=== PATIENT | male | born 1940 | race Caucasian/White ===

== ENCOUNTER 2018-04-09 13:00 | Inpatient (IN) ==
--- NOTE | 2018-04-09 13:30 | Emergency Department Note ---
General Adult HPI - General Stated complaint: weak wont eat Time Seen by Provider: 04/09/18 13:10 Source: patient, family Mode of arrival: private vehicle Limitations: no limitations Nursing Notes Reviewed: Yes Vital Signs Reviewed: Yes - Related Data Home Medications Medication Instructions Recorded Confirmed Metoprolol [Lopressor] 100 mg PO BID 09/13/15 04/09/18 Cilostazol [Pletal] 100 mg PO BID 04/03/18 04/09/18 Ferrous Sulfate [Iron] 325 mg PO TID 04/03/18 04/09/18 Losartan Potassium [Cozaar] 100 mg PO DAILY 04/03/18 04/09/18 Tamsulosin [Flomax] 0.4 mg PO DAILY 04/03/18 04/09/18 Aspirin [Ecotrin] 1 tab PO DAILY 04/06/18 04/09/18 Atorvastatin [Lipitor] 40 mg PO HS 04/06/18 04/09/18 Previous Rx's Medication Instructions Recorded Sulfamethoxazole/Trimeth DS 1 each PO BID #14 tablet 04/06/18 [Bactrim DS] Allergies Allergy/AdvReac Type Severity Reaction Status Date / Time No Known Allergies Allergy Verified 04/06/18 11:38 Past Medical History - Past Medical History Medical history: Reports: aortic aneurysm, atrial fibrillation, cancer, CVA, hyperlipidemia, hypertension, renal disease, thyroid disease Surgical history: Reports: pacemaker/AICD, prostatectomy Psychiatric history: Reports: no psych history - Social History Smoking Status: Former smoker Smokeless Tobacco Status: No Alcohol use: Reports: none Drug use: Reports: none Course Vital Signs Temperature 97.8 F 04/09/18 13:10 Pulse Rate 84 04/09/18 13:10 Respiratory Rate 18 04/09/18 13:10 Blood Pressure 109/58 04/09/18 13:10 O2 Sat by Pulse Oximetry 98 04/09/18 13:10 Temperature 97.8 F 04/09/18 13:10 Pulse Rate 87 04/09/18 13:45 Respiratory Rate 18 04/09/18 13:10 Blood Pressure 96/65 04/09/18 13:45 O2 Sat by Pulse Oximetry 98 04/09/18 13:10 Oxygen Delivery Oxygen Delivery Room Air Medical Decision Making - Medical Records Medical records reviewed: Yes I reviewed the patient's medical records. - Lab Data Lab results reviewed: Yes I reviewed the patient's lab results. - Radiology Data Radiology results reviewed: Yes I reviewed the patient's radiology results. - EKG Data EKG #1 EKG attestation: Yes I reviewed and interpreted this EKG. Rate: normal Rhythm: A.Fib, PVC's [place]/QRS: left axis deviation When compared to previous EKG there are: no significant changes Interpretation: no acute changes, unchanged when compared to prior tracing (date ) (04/06/18)
[2018-04-09 14:01] LABS: Basophils % 0.6 %; Eosinophils # 0.2 K/mcL (0.0-0.6); Eosinophils % 2.4 %; Hematocrit 32.8 % (37.5-50.1); Hemoglobin 10.6 g/dL (12.9-16.9); Immature Granulocytes % 0.2 % (0-4); Lymphocytes # 1.2 K/mcL (0.6-4.6); Lymphocytes % 18.3 %; Mean Corpuscular HGB Conc 32.3 g/dL (31.6-35.5); Mean Corpuscular Hemoglobin 28.1 pg (28.0-33.3); Mean Platelet Volume 9.5 fL (9.4-12.4); Monocytes # 0.4 K/mcL (0.0-1.3); Monocytes % 6.6 %; Neutrophils # 4.6 K/mcL (1.6-8.9); Platelet Count 254 K/mcL (140-400); Red Blood Count 3.77 M/mcL (4.19-5.50); Red Cell Distribution Width 16.8 % (11.5-14.5); Segmented Neutrophils % 71.9 %
[2018-04-09 14:06] LABS: INR 1.1; Prothrombin Time 12.4 Seconds (9.4-12.1)
[2018-04-09 14:18] LABS: Alanine Aminotransferase 11 Units/L (7-52); Albumin 3.9 g/dL (3.5-5.7); Albumin/Globulin Ratio 1.1 (1.1-2.2); Alkaline Phosphatase 114 Units/L (34-104); Aspartate Amino Transferase 19 Units/L (13-39); BUN/Creatinine Ratio 10 (6-26); Bilirubin,Total 0.5 mg/dL (0.3-1.0); Blood Urea Nitrogen 31 mg/dL (8-23); Calcium 8.8 mg/dL (8.6-10.3); Carbon Dioxide 24 mEq/L (23-29); Chloride 102 mEq/L (98-107); Globulin 3.4 g/dL (2.4-3.5); Glucose 106 mg/dL (70-105); Osmolality,Calculated 285 (280-300); Potassium 4.4 mEq/L (3.5-5.1); Sodium 134 mEq/L (136-145); Total Protein 7.3 g/dL (6.4-8.9); Troponin I < 0.03 ng/mL (< 0.04); eGFR For Non-African Americans 19 (> 60)
--- NOTE | 2018-04-09 14:20 | Emergency Department Note ---
Disposition Clinical Impression: Chronic kidney disease, stage III (moderate), Weakness, CHEYANNE (acute kidney injury) Disposition: Admitted As Inpatient Condition: Fair Forms: ED Satisfaction Letter Weakness HPI - General Chief complaint: ED Neuro Symptoms/Deficit Stated complaint: weak wont eat Time Seen by Provider: 04/09/18 13:10 Source: patient, family Mode of arrival: private vehicle Limitations: physical limitation Nursing Notes Reviewed: Yes Vital Signs Reviewed: Yes - History of Present Illness HPI Narrative: Patient presents to the ED complaining of generalized weakness and having some episodes of lightheadedness and dizziness. Patient states yesterday he felt lightheaded and dizzy and had some blurry vision that lasted for a few hours. States he is also having troubling with his speech. His son states he is actually had 2 episodes like this, one each in the past few days where he reported seeing spots and had some mumbling speech. Patient denies any chest pain or shortness of breath. No specific weakness in arm or leg. No trouble finding his words or with his thoughts. Son states patient was just at [facility] a few days ago for concern of a possible stroke but states they were told he had only had a TIA. Patient was also back in this ED a few days ago again for weakness but was only found to have a UTI. Son states he had a normal CT scan at that time. They report compliance with all of his medications. He also has a history of A. fib. Son states he used to be on Coumadin for this but was taken off it in August because of some bleeding when he had a urinary tract infection. He states [facility] recommended that he should go back on it but this needed to be discussed with his PCP. He has an appointment with his PCP in 2 days but family convinced him to come into the ED today because of the episodes of lightheadedness and dizziness. Pain Scale: 0 - Related Data Home Medications Medication Instructions Recorded Confirmed Metoprolol [Lopressor] 100 mg PO BID 09/13/15 04/09/18 Cilostazol [Pletal] 100 mg PO BID 04/03/18 04/09/18 Ferrous Sulfate [Iron] 325 mg PO TID 04/03/18 04/09/18 Losartan Potassium [Cozaar] 100 mg PO DAILY 04/03/18 04/09/18 Tamsulosin [Flomax] 0.4 mg PO DAILY 04/03/18 04/09/18 Aspirin [Ecotrin] 1 tab PO DAILY 04/06/18 04/09/18 Atorvastatin [Lipitor] 40 mg PO HS 04/06/18 04/09/18 Previous Rx's Medication Instructions Recorded Sulfamethoxazole/Trimeth DS 1 each PO BID #14 tablet 04/06/18 [Bactrim DS] Allergies Allergy/AdvReac Type Severity Reaction Status Date / Time No Known Allergies Allergy Verified 04/06/18 11:38 Constitutional: Reports: weakness. Denies: fever, chills, weight change Eyes: Reports: as per HPI, vision change. Denies: eye pain, eye discharge ENT ED: Denies: ear pain, throat pain, dental pain, hearing loss, epistaxis, congestion, dysphagia Cardiovascular: Denies: chest pain, palpitations, dyspnea on exertion, edema, syncope Respiratory: Denies: cough, dyspnea, wheezes, hemoptysis, stridor Gastrointestinal: Denies: abdominal pain, nausea, vomiting, diarrhea, constipation, hematemesis, melena, hematochezia Genitourinary: Denies: urgency, dysuria, frequency, hematuria Musculoskeletal: Denies: back pain, neck pain, arthralgia, myalgia Integumentary: Denies: rash, abrasion, lesions Neurological: Reports: as per HPI, weakness, numbness (R leg, chronic). Denies : headache, paresthesias, confusion, abnormal gait, vertigo Psychiatric: Denies: anxiety, depression, suicidal thoughts, homicidal thoughts , auditory hallucinations, visual hallucinations Endocrine: Denies: fatigue Hematological/Lymphatic: Denies: easy bleeding, easy bruising Allergic/Immunologic: Denies: facial swelling, urticaria Past Medical History - Past Medical History Medical history: Reports: aortic aneurysm, atrial fibrillation, cancer, CVA, hyperlipidemia, hypertension, renal disease, thyroid disease Surgical history: Reports: pacemaker/AICD, prostatectomy Psychiatric history: Reports: no psych history - Social History Smoking Status: Former smoker Smokeless Tobacco Status: No Alcohol use: Reports: none Drug use: Reports: none Physical Exam - General Limitations: no limitations General appearance: alert, in no apparent distress - Head Head exam: atraumatic, normocephalic, normal inspection - Eye Eye exam: Present: normal appearance, PERRL, EOMI. Absent: nystagmus - ENT ENT exam: normal exam, normal oropharynx, mucous membranes moist - Neck Neck exam: Present: normal inspection, full ROM, trachea midline - Chest Chest inspection: Present: normal inspection, symmetric chest wall rise - Respiratory Respiratory exam: Present: normal lung sounds bilaterally - Cardiovascular Cardiovascular exam: Present: regular rate, normal rhythm, normal heart sounds - Abdominal Exam Abdominal exam: Present: soft, Non-Tender. Absent: tenderness, distention, guarding, rebound, rigidity - Extremities Exam Extremities exam: Present: normal inspection, full ROM. Absent: tenderness, pedal edema - Back Exam Back exam: Present: normal inspection, full ROM. Absent: tenderness - Neurological Exam Neurological exam: Present: alert, oriented X3, CN II-XII intact, reflexes normal. Absent: motor sensory deficit - Expanded Neurological Exam Motor strength - LUE: 5/5 Motor strength - RUE: 5/5 Motor strength - LLE: 5/5 Motor strength - RLE: 5/5 Upper motor neuron exam: fernandez neglect: Absent bilaterally, pronator drift: Absent bilaterally Sensory exam upper extremity: light touch: Normal Sensory exam lower extremity: light touch: Normal Coma Scale Eye Opening: Spontaneous Coma Scale Motor Response: Obeys Commands Coma Scale Verbal Response: Oriented Coma Scale Total: 15 - Psychiatric Psychiatric exam: Present: normal affect, normal mood - Skin Skin exam: Present: warm, dry, intact, normal color Course Course Narrative: Patient presents to the ED complaining of generalized weakness as well as some recurrent episodes of feeling lightheaded, dizzy and seeing spots as well as a subjective report of trouble with his speech. On arrival he is afebrile, nontoxic in appearance and hemodynamically stable. He ambulated into the ED. His speech is clear, there are no focal deficits in his an IHS stroke scale is currently 0. Review of records shows that he was seen here on 04/03 for sudden onset of weakness in his arm. Symptoms improved and he was not given TPA. He was sent to [facility] for further workup. Records there shows he was discharged on with a diagnosis of TIA and is on medications for risk factor modification. He he was seen here again in the ED on 04/06 for weakness. Laboratory studies were unchanged although urinalysis showed signs of possible UTI at that time. Head CT was normal. He was discharged home on antibiotics which he has been taking. Will repeat blood work, urinalysis, chest x-ray and head CT given persistent intermittent neurologic symptoms as well as generalized weakness that may be do to electrolyte abnormality, UTI or other underlying issue. - Reevaluation(s) Reevaluation #1: CBC and BMP are unchanged from a few days ago other than a significant increase in his creatinine which likely represents acute kidney injury. Patient is not yet the nail to provide a urine sample. Head CT and chest x-ray are unremarkable with no new findings. EKG showed A. fib with PVCs and no ischemic changes and is unchanged from April 06. Will start patient on gentle hydration. Discussed with patient and family my recommendation for admission for IV hydration and monitoring of his kidney function and they are in agreement. Family feels that he would also benefit from evaluation for possible physical therapy for his general decline. I spoke to Dr. Biggs from his PCPs office. Records were reviewed which did reveal some evidence of chronic kidney disease and a history of recurrent slow-growing mass in his kidney that was felt to be likely renal carcinoma that patient has been undergoing conservative management of with close follow-up with nephrology and urology on an outpatient basis. Dr. Biggs agreed to accept the patient here for IV hydration and repeat laboratory studies. Patient family updated on plan. Time: 14:47 Vital Signs Temperature 97.8 F 04/09/18 13:10 Pulse Rate 84 04/09/18 13:10 Respiratory Rate 18 04/09/18 13:10 Blood Pressure 109/58 04/09/18 13:10 O2 Sat by Pulse Oximetry 98 04/09/18 13:10 Temperature 97.8 F 04/09/18 13:10 Pulse Rate 87 04/09/18 13:45 Respiratory Rate 18 04/09/18 13:10 Blood Pressure 96/65 04/09/18 13:45 O2 Sat by Pulse Oximetry 98 04/09/18 13:10 Oxygen Delivery Oxygen Delivery Room Air Weakness - Differential Diagnosis Differential Diagnosis: Likely: dehydration, medication effect, stroke, metabolic - Medical Records Medical records reviewed: Yes I reviewed the patient's medical records. - Lab Data Lab results reviewed: Yes I reviewed the patient's lab results. Result diagrams: 04/09/18 13:52 04/09/18 13:52 Lab Results 04/09/18 04/09/18 Range/Units 13:52 13:52 WBC 6.3 (4.3-11.1) K/mcL RBC 3.77 L (4.19-5.50) M/mcL Hgb 10.6 L (12.9-16.9) g/dL Hct 32.8 L (37.5-50.1) % MCV 87.0 (83.0-100.0) fL MCH 28.1 (28.0-33.3) pg MCHC 32.3 (31.6-35.5) g/dL RDW 16.8 H (11.5-14.5) % Plt Count 254 (140-400) K/mcL MPV 9.5 (9.4-12.4) fL Immature Gran % 0.2 (0-4) % Seg Neutrophils % 71.9 % Lymphocytes % 18.3 % Monocytes % 6.6 % Eosinophils % 2.4 % Basophils % 0.6 % Neutrophils # 4.6 (1.6-8.9) K/mcL Lymphocytes # 1.2 (0.6-4.6) K/mcL Monocytes # 0.4 (0.0-1.3) K/mcL Eosinophils # 0.2 (0.0-0.6) K/mcL Basophils # 0.0 (0.0-0.2) K/mcL Sodium 134 L (136-145) mEq/L Potassium 4.4 (3.5-5.1) mEq/L Chloride 102 (98-107) mEq/L Carbon Dioxide 24 (23-29) mEq/L BUN 31 H (8-23) mg/dL Creatinine 3.11 H (0.70-1.30) mg/dL Est GFR ( Amer) 24 L (> 60) Est GFR (Non-Af Amer) 19 L (> 60) BUN/Creatinine Ratio 10 (6-26) Glucose 106 H (70-105) mg/dL Calculated Osmolality 285 (280-300) Calcium 8.8 (8.6-10.3) mg/dL Total Bilirubin 0.5 (0.3-1.0) mg/dL AST 19 (13-39) Units/L ALT 11 (7-52) Units/L Alkaline Phosphatase 114 H (34-104) Units/L Troponin I < 0.03 (< 0.04) ng/mL Serum Total Protein 7.3 (6.4-8.9) g/dL Albumin 3.9 (3.5-5.7) g/dL Globulin 3.4 (2.4-3.5) g/dL Albumin/Globulin Ratio 1.1 (1.1-2.2) - Radiology Data Radiology results reviewed: Yes I reviewed the patient's radiology results. ITS Impressions Chest X-Ray 04/09/18 13:30 IMPRESSION: No acute cardiopulmonary abnormality. D/ / Shayan Muir / Shayan Muir Interpreting Provider: Shayan Muir Head CT 04/09/18 13:31 IMPRESSION: No acute intracranial abnormality. Multiple chronic changes as detailed above. D/ / 04/09/2018 14:22:00 Axel Garza MD / berny Interpreting Provider: Axel Garza MD - EKG Data EKG attestation: Yes I reviewed and interpreted this EKG. Rate: normal Rhythm: A.Fib, PVC's Interpretation: no acute changes, unchanged when compared to prior tracing (date ) (04/06/18) NIH Stroke Scale - Level of Consciousness LOC: Alert - LOC Questions LOC Questions: Answers both correctly - LOC Commands LOC Commands: Performs both correctly - Best Gaze Best Gaze: Normal - Visual Visual: No visual loss - Facial Palsy Facial Palsy: Normal - Motor Arms Motor Arm-Left: No drift for 10 seconds Motor Arm-Right: No drift for 10 seconds - Motor Legs Motor Leg-Left: No drift for 5 seconds Motor Leg-Right: No drift for 5 seconds - Limb Ataxia Limb Ataxia: Normal, No Ataxia - Sensory Sensory: Normal - Best Language Best Language: No aphasia - Dysarthria Dysarthria: Normal - Extinction and Inattention Extinction and Inattention: Normal - NIHSS Total Score NIHSS Total Score: 0
[2018-04-09] MEDS ORDERED: 0.9 % Sodium Chloride 1,000 ML IVC SCH (14:30)
[2018-04-09] MEDS ORDERED: Naloxone 0.4 MG/ML INJ IVP PRN ×2 (14:50→16:12)
[2018-04-09] MEDS: 0.9 % Sodium Chloride 1,000 ML IVC SCH ×2 (17:37→23:40)
--- NOTE | 2018-04-09 23:17 | Internal Med History&Physical ---
Date of Encounter: 04/10/18 Time of Encounter: 23:17 Assessment and Plan (1) CHEYANNE (acute kidney injury) Current visit: Yes Status: Acute Patient is admitted to observation bed with history of acute kidney injury with creatinine now up to 3.1. He does have a history chronic kidney disease but not this degree. Likely this is prerenal as is not been eating and drinking well the past few days as he is "felt weak". Alternately, he might be feeling weak because of his chronic kidney disease. He indicates he will have IV fluids and repeat in the morning. He does have history chronic kidney disease and followed by Dr. Huerta. He also happens to have right renal mass likely recurrence of renal cell carcinoma after cryoablation. Currently they are not planning intervention. No gross hematuria currently. Previously had hematuria and anemia. (2) History of CVA (cerebrovascular accident) Current visit: Yes Status: Acute History of bilateral small CVAs with recent right upper extremity TIA and was transferred to [facility]. The recommended full anticoagulation but was discharged on aspirin 325 and atorvastatin in addition to his usual medications. That incision for full anticoagulation to PCP Roxana Mathew with appointment scheduled for 2 days from now. At the present time I do not feel that these having recurrence of CVA. He seemed to have slight right lower extremity foot decreased strength in plantar flexion and dorsiflexion compared to left side. Continues with atrial fibrillation. His echocardiogram apparently was unremarkable for septal defect or clot. He had total occlusion of the right IC with 40% occlusion of the left internal carotid. I will continue with the aspirin. He was taken off Coumadin because of the bleeding/hematuria previously. (3) Chronic kidney disease, stage III (moderate) Current visit: Yes Status: Chronic Chronic kidney disease and followed by Dr. Huerta. Today admitted with acute kidney injury with creatinine 3.1. (4) Weakness Current visit: Yes Status: Acute Continued generalized weakness, particularly of the lower extremities though. The patient on his medical status tomorrow we will evaluate with PT and OT. His CT scan shows small vessel disease. MRI done a few days ago at [facility] showed small multiple infarcts. He is a great fall risk and I hope therapy is able to see him and make him stronger. (5) Atrial fibrillation Current visit: Yes Status: Chronic Chronic atrial fibrillation which has controlled rate. Likely this is the source of his multiple small CVAs as documented on MRI scan. We will discuss further anticoagulation as well. Qualifiers: Atrial fibrillation type: chronic Qualified Code(s): I48.2 - Chronic atrial fibrillation (6) Renal mass, right Current visit: No Status: Acute Patient was treated for right renal cell carcinoma with cryoablation. However probably there is recurrence and has a large 5 cm right renal mass. The present time they are planning no intervention. (7) DVT prophylaxis Current visit: Yes Status: Acute We will plan on starting Lovenox for DVT prophylaxis as well as try to initiate early ambulation Internal Medicine - H&P: HPI Chief complaint: I was having some dizzy spells Admitted From: Emergency Dept Plans for Post Hospital Care: Home History of present illness: Mr. Issa is a 78 year old male with known history of recent TIA of right upper extremity at [facility], history of hypertension, PVD, chronic atrial fibrillation, renal carcinoma and chronic kidney disease was seen in the emergency room because of "dizzy spells". He states that his vision was "blurry" when he is watching TV. It would "come and go". He states "I have no strength, I am weak", and he complains mainly in his legs being weak bilaterally. He said he has "dizzy spells" but he does not have vertiginous type symptoms. It is hard for him to explain the symptoms. Denies acute vision problems but he states his right eye has "bad" for many years. He was at [facility] recently with a history of right arm weakness when he was mowing. Workup there included MRI scan which showed multiple small infarcts. 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 He has history of chronic atrial fibrillation. His echocardiogram was unremarkable for septal defect or clot. He was recently taken off Coumadin because of hematuria/ anemia. [facility] wants him back on full anticoagulation, he is currently taking aspirin 325 mg and atorvastatin was added. He had an appointment to see Roxana Mathew his PCP on 04/11/18 to discuss this further. Patient denies headache, new vision changes, new unilateral weakness. He states both his lower extremities feel weak, the right possibly more weak than the left. He thinks his right arm is back to normal following TIA. He has not had any falling episodes. At home he uses a walker or wheelchair or cane to get around since that episode. In the ER they felt he did not have any new focal deficit. His vitals were stable. However, he has acute kidney injury with creatinine of 3.1 which is far from his baseline. Patient admits he has not been eating or drinking very much for the past few days. He denies any gross hematuria. Past Med Surg Social Fam HX - Past Medical History Medical history: aortic aneurysm, atrial fibrillation, cancer (Renal cell carcinoma and recurrence), CVA, hyperlipidemia, hypertension, malignancy ( History of renal cell carcinoma and recurrence after cryotherapy), renal disease , thyroid disease Additional medical history: stroke in right eye Psychiatric history: no psych history - Past Surgical History Surgical History: prostatectomy Additional surgical history: cardioversion 2007, aaa repair, colonoscopy - Social History Smoking Status: Former smoker Smokeless Tobacco Status: No Alcohol use: none Drug use: none - Family History Father Cause of : History coronary artery disease Hx Family Cardiac Disorders: Yes Mother Living Status: Cause of : History of cholecystitis Internal Medicine - H&P: Meds Metoprolol [Lopressor] 100 mg PO BID 09/13/15 [History] Cilostazol [Pletal] 100 mg PO BID 04/03/18 [History] Ferrous Sulfate [Iron] 325 mg PO TID 04/03/18 [History] Losartan Potassium [Cozaar] 100 mg PO DAILY 04/03/18 [History] Tamsulosin [Flomax] 0.4 mg PO DAILY 04/03/18 [History] Aspirin [Ecotrin] 1 tab PO DAILY 04/06/18 [History] Atorvastatin [Lipitor] 40 mg PO HS 04/06/18 [History] Diltiazem HCl [Diltiazem 24Hr Cd] 360 mg PO DAILY 04/10/18 [History] 3 Allergy/AdvReac Type Severity Reaction Status Date / Time No Known Allergies Allergy Verified 04/06/18 11:38 - Constitutional Constitutional: fatigue, lethargy, no fever(s), no falls - EENT Additional comments: Chronically has poor vision from the right eye for many years Nose, mouth and throat: no neck mass, no sore throat - Cardiovascular Cardiovascular ROS IM: no chest pain, no claudication, no dyspnea, no edema, no irregular heart rhythm - Respiratory Respiratory: no dyspnea, no hemoptysis, no dyspnea on exertion, no chest congestion - Gastrointestinal Gastrointestinal: no constipation, no diarrhea, no hematemesis, no hematochezia , no melena - Genitourinary Genitourinary ROS male: no difficulty urinating - Musculoskeletal Musculoskeletal ROS IM: muscle weakness (Complaints of lower extremity weakness , the right may be worse than the left. No recent falls.) - Integumentary Integumentary IM: no rash - Neurological Neurological ROS: dizziness (Complaint of "dizziness" but he does not mean vertigo.), loss of vision (Chronically has decreased vision in the right eye.), weakness (Feels like his lower extremities are weak, right worse than left.), no confusion, no frequent falls, no memory loss, no vertigo - Psychiatric Psychiatric: no confusion, no depression - Constitutional Vitals: Temp Pulse Resp BP Pulse Ox 97.4 F L 86 16 119/47 93 04/09/18 19:52 04/09/18 22:33 04/09/18 15:38 04/09/18 22:33 04/09/18 19:52 General appearance: Present: cooperative, A&O X 3, no acute distress, answers questions appropriately - Head Head exam: Present: atraumatic, normal inspection, normocephalic - Eye Eye exam: Present: EOMI, PERRL. Absent: scleral icterus Pupils: Present: PERRL - ENT ENT exam: Present: mucous membranes moist, TM's normal bilaterally Additional comments: He is missing his upper teeth and no dentures present. Some lower teeth still present. - Neck Neck exam general surgery: Absent: lymphadenopathy, nuchal rigidity, thyromegaly Additional comments: I did not hear any bruits bilaterally, but he did not hold his breath well - Respiratory Respiratory exam: Present: CTAB. Absent: respiratory distress - Cardiovascular Cardiovascular exam: Present: distant heart sounds, irregular rhythm, +S1, +S2. Absent: systolic murmur - GI/Abdominal GI/Abdominal exam: Present: soft. Absent: hepatomegaly, tenderness - Extremities Exam Extremities exam: Present: warm. Absent: calf tenderness, mottling, pedal edema - Neurological Exam Neurological exam: Present: alert, CN II-XII intact, oriented X3. Absent: altered, facial droop Additional comments: Dorsiflexion and plantar flexion of the right foot and toes seemed slightly weaker than the left side. Quad strength tested in bed is equal and normal bilaterally. Upper extremity strength appeared to be intact bilaterally. I did not check his gait. - Skin Skin exam: Absent: rash Internal Med - H&P Results - Labs CBC & Chem 7: 04/09/18 13:52 04/10/18 05:45 Labs: Labs have been reviewed. Pertinent one includes creatinine 3.1. - Diagnostic Studies CT scan - head Additional comments: CT scan of the head in the ER showed multiple microvascular ischemic changes. Nothing localizing. - VTE Reasons for not Prescribing Prophylaxis: Medical contraindication
[2018-04-10 00:17] LABS: Bilirubin,Urine Negative (Negative); Blood,Urine Large (Negative); Clarity,Urine Clear (Clear); Color,Urine Yellow (Yellow); Glucose,Urine (UA) Normal (Normal); Ketones,Urine Negative (Negative); Leukocyte Esterase,Urine Negative (Negative); Nitrite,Urine Negative (Negative); Protein,Urine 100 mg/dL (Neg-Trace); Specific Gravity,Urine >= 1.030 (1.010-1.025); Urobilinogen,Urine Normal (Normal)
[2018-04-10 00:35] LABS: RBC,Urine TNTC per hpf (0-3); Squamous Epithelial Cell,Urine Few per lpf (None-Few); WBC,Urine 0-3 per hpf (0-3)
[2018-04-10 06:13] LABS: Calcium 8.3 mg/dL (8.6-10.3); Potassium 4.2 mEq/L (3.5-5.1)
[2018-04-10] MEDS: *HR* Enoxaparin 30 MG/0.3 ML SYRINGE SQ SCH (06:21)
[2018-04-10] MEDS: 0.9 % Sodium Chloride 1,000 ML IVC SCH ×2 (08:37→17:21)
[2018-04-10] MEDS: Diltiazem CD (24hr) 180 MG CAPSULE PO SCH (08:39)
[2018-04-10] MEDS: Aspirin Enteric Coated 325 MG Tablet PO SCH (08:39)
--- NOTE | 2018-04-10 12:38 | Internal Med Progress Note ---
Date of Encounter: 04/10/18 Time of Encounter: 12:19 - Assessment and plan (1) CHEYANNE (acute kidney injury) Current Visit: Yes Status: Acute Assessment and plan: Patient minutes to observation bed due to acute kidney injury. Creatinine is still elevated above his baseline chronic kidney disease. It is showing improvement with IV fluids and we will continue the same. We will contact his syrup blender if not resolving (2) History of CVA (cerebrovascular accident) Current Visit: Yes Status: Acute Assessment and plan: It appears that he has had a CVA with residual right hemiplegia not just a resolved TIA as per [facility] note. He deserves to be admitted to the hospital for ongoing PT and OT and other therapy evaluation. I will consult Dr. Tam, vocational rehabilitation administrator, for further evaluation and planning. I feel that he meets criteria for admission to hospital and I will make those orders. Hopefully he will qualify for full rehabilitation at the appropriate time. I appreciate input from PT and OT today. I feel that he should resume his Coumadin because of his atrial fibrillation and history of multiple CVA findings on his MRI scan. The Coumadin was held because of hematuria and anemia but I think the risks of recurring CVA is larger. I will discuss this with his PCP as well. (3) Chronic kidney disease, stage III (moderate) Current Visit: Yes Status: Chronic Assessment and plan: Acute kidney injury in addition to chronic kidney disease. Creatinine is improving. Continue the IV fluids. Nephrology consultation if not resolving (4) Weakness Current Visit: Yes Status: Acute Assessment and plan: As above with CVA (5) Atrial fibrillation Current Visit: Yes Status: Chronic Assessment and plan: Chronic atrial fibrillation and rate controlled. No angina or CHF. Consideration for restarting Coumadin because of residual CVA signs and multiple small infarcts on MRI scan likely embolic. Qualifiers: Atrial fibrillation type: chronic Qualified Code(s): I48.2 - Chronic atrial fibrillation (6) Renal mass, right Current Visit: No Status: Acute (7) DVT prophylaxis Current Visit: Yes Status: Acute - Subjective Interval history: Patient thought that he rested Saturday well through the night. He still complains "I am weak all over". He does not have much of an appetite. He states he has not eaten well since his episode this sent him to [facility]. He denies a cardiac type chest pain or palpitation, denies any dyspnea. Denies any GI or symptoms except he "has the runs", meaning these had some loose stools recently. No gross hematuria. I spoke with his son today who said that ever since he came home from [facility] from having had his "TIA" he has had to help with standing to pivot and turn and sit into a wheelchair, had to help him with toileting, and that the patient has not been able to walk independently. This is obviously far worse than what the patient implied to me when I met him. - Constitutional Vitals: Temp Pulse Resp BP Pulse Ox 97.6 F 80 16 120/69 93 04/10/18 11:54 04/10/18 11:54 04/10/18 11:54 04/10/18 11:54 04/10/18 11:54 General appearance: Present: cooperative, A&O X 3, no acute distress, answers questions appropriately - Respiratory Respiratory exam: Present: CTAB - Cardiovascular Cardiovascular exam: Present: irregular rhythm, RRR, +S1, +S2 - Extremities Exam Extremities exam: Absent: calf tenderness, pedal edema - Neurological Exam Additional comments: As tested in seated position, 4-5 in strength in his quads and dorsiflexion plantar flexion of the foot on the right side. I did not try to ambulate him today. He has seen PT and OT and I will review those reports. Internal Medicine: Result - Labs CBC & Chem 7: 04/09/18 13:52 04/10/18 05:45 Labs: BMP 04/10/18 05:45 Sodium 138 Potassium 4.2 Chloride 108 H Carbon Dioxide 23 BUN 29 H Creatinine 2.52 H Glucose 100 Calcium 8.3 L Urine 04/09/18 Range/Units 23:58 Urine Color Yellow (Yellow) Urine Clarity Clear (Clear) Urine pH 6.0 (5.0-8.0) pH Units Ur Specific [place] >= 1.030 H (1.010-1.025) Urine Protein 100 H (Neg-Trace) mg/dL Urine Glucose (UA) Normal (Normal) mg/dL His creatinine is a bit better down for 3.1 to 2.52. - ABG Interpretation ABG results: PT/INR, D-dimer PT 12.4 Seconds (9.4-12.1) H 04/09/18 13:52 - VTE Reasons for not Prescribing Prophylaxis: Medical contraindication Consult Discharge Plan - Plan Referrals: Roxana Mathew CNP [Primary Care Provider] -
[2018-04-10] MEDS ORDERED: *HR* Warfarin 5 MG TABLET PO ONE (19:31)
--- NOTE | 2018-04-10 20:10 | Physcial Medicine-Consult Note ---
Date of Encounter: 04/10/18 Time of Encounter: 20:06 Physical Medicine - AP (1) CVA (cerebral vascular accident) Status: Acute Assessment and plan: Left CVA Right sided incooordination. Improving right hemisensory deficit. Pt. is appropriate for rehab program to regain right hemibody controll and gait stability so he can be safe at home Code(s): I63.9 - Cerebral infarction, unspecified SNOMED Code(s): 621654705 Physical Medicine - HPI - Data of Consult Requesting Physician: Peter Biggs MD Primary Care Provider: Roxana Mathew CNP - Consult Narrative History of present illness: Mr. Issa is a 78 year old LH male Admitted for right sided weakness, abnormality or gait, RUE hemisensory disturbance. He was not eating or drinking at home. He admits to RUE numbness but states it is improving. He admits to being unsteady on his feet. He denies visual change, difficulty swallowing, or incontinence. CC: Peter Biggs MD Past Med Surg Social Fam HX - Past Medical History Attestation: Yes The following information was validated with the patient. Medical history: aortic aneurysm, atrial fibrillation, cancer (Renal cell carcinoma and recurrence), CVA, hyperlipidemia, hypertension, malignancy ( History of renal cell carcinoma and recurrence after cryotherapy), renal disease , thyroid disease Additional medical history: stroke in right eye Psychiatric history: no psych history - Past Surgical History Surgical History: prostatectomy Additional surgical history: cardioversion 2007, aaa repair, colonoscopy - Social History Smoking Status: Former smoker Smokeless Tobacco Status: No Alcohol use: none Drug use: none Occupational status: retired Current living situation: Home - Independent Activity Level: Very active Recent Out of Country Travel Within the Last 8 Weeks: No Exposure or Possible Exposure to Illness During Travel: No Additional social history: Lives in a 1 story house with 4 steps up from outside to enter. He has a son who is involved with his care. - Family History Father Cause of : History coronary artery disease Hx Family Cardiac Disorders: Yes Mother Living Status: Cause of : History of cholecystitis Medications and Allergies Metoprolol [Lopressor] 100 mg PO BID 09/13/15 [History] Cilostazol [Pletal] 100 mg PO BID 04/03/18 [History] Ferrous Sulfate [Iron] 325 mg PO TID 04/03/18 [History] Losartan Potassium [Cozaar] 100 mg PO DAILY 04/03/18 [History] Tamsulosin [Flomax] 0.4 mg PO DAILY 04/03/18 [History] Aspirin [Ecotrin] 1 tab PO DAILY 04/06/18 [History] Atorvastatin [Lipitor] 40 mg PO HS 04/06/18 [History] Diltiazem HCl [Diltiazem 24Hr Cd] 360 mg PO DAILY 04/10/18 [History] 3 Allergy/AdvReac Type Severity Reaction Status Date / Time No Known Allergies Allergy Verified 04/06/18 11:38 All systems: reviewed and no additional remarkable complaints except as stated Physical Medicine - Exam - Constitutional Vitals: Temp Pulse Resp BP Pulse Ox 98.3 F 89 16 105/72 96 04/10/18 19:38 04/10/18 19:38 04/10/18 19:38 04/10/18 19:38 04/10/18 19:38 General appearance: cooperative, no acute distress, obese - Head Head exam: Present: atraumatic, normocephalic - Eye Eye exam: Present: EOMI Additional comments: Visual landry intact to confrontation. - ENT ENT exam: Present: mucous membranes dry, normal oropharynx Additional comments: Tongue protrudes midline. - Neck Neck exam: Present: full ROM. Absent: tenderness - Respiratory Respiratory exam: Present: CTAB - Cardiovascular Cardiovascular exam: Present: irregular rhythm - GI/Abdominal GI/Abdominal exam: Present: normal bowel sounds, soft - Extremities Exam Extremities exam: Present: full ROM, normal capillary refill, normal inspection. Absent: joint swelling, pedal edema Additional comments: Strength 4+/5 all - Neurological Exam Neurological exam: Present: abnormal gait, alert, CN II-XII intact, oriented X3 , pronater drift. Absent: reflexes normal, facial droop Additional comments: RUE and RLE incoordination. - Psychiatric Psychiatric exam: Present: flat affect, normal mood - Skin Skin exam: Present: intact Physical Medicine - Results - Labs CBC & Chem 7: 04/09/18 13:52 04/10/18 05:45 Labs: BMP 04/10/18 05:45 Sodium 138 Potassium 4.2 Chloride 108 H Carbon Dioxide 23 BUN 29 H Creatinine 2.52 H Glucose 100 Calcium 8.3 L Urine 04/09/18 Range/Units 23:58 Urine Color Yellow (Yellow) Urine Clarity Clear (Clear) Urine pH 6.0 (5.0-8.0) pH Units Ur Specific [place] >= 1.030 H (1.010-1.025) Urine Protein 100 H (Neg-Trace) mg/dL Urine Glucose (UA) Normal (Normal) mg/dL Anemia, CKD Consult Discharge Plan - Plan Referrals: Roxana Mathew, MAGDALENO [Primary Care Provider] -
[2018-04-11] MEDS: 0.9 % Sodium Chloride 1,000 ML IVC SCH ×3 (01:49→21:27)
[2018-04-11 05:25] LABS: Calcium 8.4 mg/dL (8.6-10.3); Potassium 4.2 mEq/L (3.5-5.1)
[2018-04-11] MEDS: *HR* Enoxaparin 30 MG/0.3 ML SYRINGE SQ SCH (06:05)
--- NOTE | 2018-04-11 07:45 | Internal Med Progress Note ---
Date of Encounter: 04/11/18 Time of Encounter: 07:40 - Assessment and plan (1) CHEYANNE (acute kidney injury) Current Visit: Yes Status: Acute Assessment and plan: His acute kidney injury is improving with IV fluids. Creatinine now down to 1.54. I will change his IV from 125 per hour down to 100 per hour and unplug it during his therapies. His po intake is improving. (2) History of CVA (cerebrovascular accident) Current Visit: Yes Status: Acute Assessment and plan: Right-sided weakness consistent with CVA and has been seen by Dr. Tam. We will try to get him transferred to full rehabilitation therapies when eligible. Anticoagulation with Coumadin was reinitiated yesterday. Typically at home in the past he has averaged about 2 mg daily for therapeutic PT/INR, I did start at 5 mg. We will have daily pro-time. (3) Chronic kidney disease, stage III (moderate) Current Visit: Yes Status: Chronic Assessment and plan: Chronic kidney disease but recently had creatinine in the normal range prior to his recent CVA. Improved with IV fluids. (4) Weakness Current Visit: Yes Status: Acute Assessment and plan: CVA as above. (5) Atrial fibrillation Current Visit: Yes Status: Chronic Assessment and plan: Chronic atrial fibrillation, now has had findings consistent with CVA and Coumadin was restarted. Previous it was held because of hematuria. His hemoglobin got down to the 8 gram range. I think it is prudent that he stay on full anticoagulation with Coumadin. This was discussed with patient, as well as with son yesterday. Coumadin was started at 5 mg. Daily pro time ordered. Qualifiers: Atrial fibrillation type: chronic Qualified Code(s): I48.2 - Chronic atrial fibrillation (6) Renal mass, right Current Visit: No Status: Acute Assessment and plan: Known history of recurrence of renal mass after cryoablation. At this time they are not doing intervention as per the urologist and patient. (7) DVT prophylaxis Current Visit: Yes Status: Acute Assessment and plan: Patient is currently on Lovenox for DVT prophylaxis until therapeutic with his Coumadin. - Subjective Interval history: Patient thinks that he is doing better. His appetite is better and he is eating better. He denies any cardiac or respiratory symptoms. He thinks he is getting a bit stronger but still "weak" particularly his legs. He is concerned because he has had incontinence of stool. He has had a loose bowel movement once or twice a day. This is not a chronic problem for him. There is no melena or hematochezia. No abdominal pain. Patient was evaluated by Dr. Tam last night to confirm his right sided weakness and incoordination. He thinks patient would make a good candidate for rehabilitation in the unit. This discussed with the patient today. - Constitutional Vitals: Temp Pulse Resp BP Pulse Ox 98.1 F 102 18 118/55 93 04/11/18 07:28 04/11/18 07:28 04/11/18 07:28 04/11/18 07:28 04/11/18 07:28 General appearance: Present: cooperative, A&O X 3, no acute distress, answers questions appropriately Exam: He seems to have a flat affect, but I have not seen him prior to this hospitalization. - Respiratory Respiratory exam: Present: decreased breath sounds, CTAB - Cardiovascular Cardiovascular exam: Present: irregular rhythm, +S1, +S2. Absent: systolic murmur Additional comments: Monitor has shown atrial fibrillation with heart rate in the 80s and 90s with occasional PVC. - GI/Abdominal GI/Abdominal exam: Present: soft. Absent: tenderness - Extremities Exam Extremities exam: Absent: calf tenderness, pedal edema - Neurological Exam Neurological exam: Present: CN II-XII intact, pronater drift (Right sided pronator drift). Absent: facial droop Additional comments: He seems to have a flat affect. Right pronator drift. Right lower extremity 4 out of 5 strength I did not try to ambulate patient today. Internal Medicine: Result - Labs CBC & Chem 7: 04/09/18 13:52 04/11/18 04:49 Labs: BMP 04/11/18 04:49 Sodium 138 Potassium 4.2 Chloride 110 H Carbon Dioxide 21 L BUN 18 Creatinine 1.54 H Glucose 93 Calcium 8.4 L - ABG Interpretation ABG results: PT/INR, D-dimer PT 12.4 Seconds (9.4-12.1) H 04/09/18 13:52 - VTE Reasons for not Prescribing Prophylaxis: Medical contraindication Consult Discharge Plan - Plan Referrals: Roxana Mathew, FOOD AND BEVERAGE OPERATIONS MANAGER [Primary Care Provider] -
[2018-04-11] MEDS: Diltiazem CD (24hr) 180 MG CAPSULE PO SCH (09:01)
[2018-04-11] MEDS: Aspirin Enteric Coated 325 MG Tablet PO SCH (09:01)
[2018-04-12] MEDS: *HR* Enoxaparin 30 MG/0.3 ML SYRINGE SQ SCH (04:58)
[2018-04-12 05:30] LABS: INR 1.2; Prothrombin Time 13.9 Seconds (9.4-12.1)
[2018-04-12 05:44] LABS: eGFR For Non-African Americans 50 (> 60)
[2018-04-12] MEDS: 0.9 % Sodium Chloride 1,000 ML IVC SCH ×3 (08:04→19:38)
[2018-04-12] MEDS: Aspirin Enteric Coated 325 MG Tablet PO SCH (08:09)
[2018-04-12] MEDS: Diltiazem CD (24hr) 180 MG CAPSULE PO SCH (08:09)
--- NOTE | 2018-04-12 13:35 | Internal Med Progress Note ---
Date of Encounter: 04/12/18 Time of Encounter: 13:33 - Assessment and plan (1) BPH (benign prostatic hypertrophy) with urinary obstruction Current Visit: No Status: Chronic (2) Chronic kidney disease, stage III (moderate) Current Visit: Yes Status: Chronic Assessment and plan: Has improved with the IV fluids. (3) Atrial fibrillation Current Visit: Yes Status: Chronic Qualifiers: Atrial fibrillation type: chronic Qualified Code(s): I48.2 - Chronic atrial fibrillation (4) Renal mass, right Current Visit: No Status: Acute (5) Acute blood loss anemia Current Visit: No Status: Acute Assessment and plan: Has been stable we will continue to follow he did have bleeding after his renal mass. He is back on Coumadin he did not get that yesterday he only had 1 dose on that will be restarted (6) Weakness Current Visit: Yes Status: Acute Assessment and plan: He is deconditioned and weak he is here for PT OT and RT.. He will be made for rehabilitation on Saturday. 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 He is back on Coumadin but he only had 1 dose on he did not have the dose Saturday it will be restarted today. (9) DVT prophylaxis Current Visit: Yes Status: Acute Assessment and plan: He is on Lovenox subcutaneous. Until his INR is therapeutic - Subjective Interval history: He is feeling better today he is still tired he is still weak. But he does feel little bit more energetic. He is any very much but he has picked up on his appetite. He denies any pain. He did have some diarrhea that is since resolved he has not had any stool today. He denies nausea vomiting abdominal pain. He denies dysuria incontinence or frequency. He denies chest pain palpitations. He denies being dizzy - Constitutional Vitals: Temp Pulse Resp BP Pulse Ox 98.0 F 88 16 124/72 95 04/12/18 12:04 04/12/18 12:04 04/12/18 12:04 04/12/18 12:04 04/12/18 12:04 General appearance: Present: cooperative, A&O X 3, no acute distress, answers questions appropriately - Head Head exam: Present: atraumatic, normocephalic - Eye Eye exam: Present: PERRL - Neck Neck exam general surgery: Present: supple, trachea midline. Absent: lymphadenopathy, tenderness - Expanded Neck Exam Neck exam: Present: carotid bruit - Respiratory Respiratory exam: Present: CTAB - Cardiovascular Cardiovascular exam: Present: RRR, +S1, +S2. Absent: systolic murmur - Extremities Exam Extremities exam: Present: full ROM, warm. Absent: mottling, pedal edema - Neurological Exam Neurological exam: Present: facial droop (Mild on the right). Absent: strengths equal and symetr throughout (Right side is weaker than the left side) , speech deficit - Skin Skin exam: Present: dry, warm. Absent: rash Internal Medicine: Result - Labs CBC & Chem 7: 04/12/18 04:50 04/12/18 04:50 Labs: Short CBC 04/12/18 Range/Units 04:50 Hgb 9.4 L (12.9-16.9) g/dL BMP 04/12/18 04:50 Creatinine 1.38 H - ABG Interpretation ABG results: PT/INR, D-dimer PT 13.9 Seconds (9.4-12.1) H 04/12/18 04:50 - VTE Reasons for not Prescribing Prophylaxis: Medical contraindication Consult Discharge Plan - Plan Referrals: Roxana Mathew, CUSTOMER SERVICES COORDINATOR [Primary Care Provider] -
[2018-04-13 05:15] LABS: INR 1.2
[2018-04-13 05:25] LABS: eGFR For Non-African Americans 51 (> 60)
[2018-04-13] MEDS ORDERED: *HR* Enoxaparin 40 MG/0.4 ML SYRINGE SQ SCH (06:00)
[2018-04-13] MEDS: 0.9 % Sodium Chloride 1,000 ML IVC SCH ×2 (06:37→13:20)
[2018-04-13] MEDS: Aspirin Enteric Coated 325 MG Tablet PO SCH (09:22)
[2018-04-13] MEDS: Diltiazem CD (24hr) 180 MG CAPSULE PO SCH (09:23)
--- NOTE | 2018-04-13 11:49 | Internal Med Progress Note ---
Date of Encounter: 04/13/18 Time of Encounter: 11:47 - Assessment and plan (1) BPH (benign prostatic hypertrophy) with urinary obstruction Current Visit: No Status: Chronic Assessment and plan: urinating ok (2) Chronic kidney disease, stage III (moderate) Current Visit: Yes Status: Chronic Assessment and plan: Has improved with the IV fluids.will saline well. repeat labs in am (3) Atrial fibrillation Current Visit: Yes Status: Chronic Assessment and plan: restarted the coumadin but missed a dose. will follow inr, d/c lovenox when inr in range Qualifiers: Atrial fibrillation type: chronic Qualified Code(s): I48.2 - Chronic atrial fibrillation (4) Renal mass, right Current Visit: No Status: Acute (5) Acute blood loss anemia Current Visit: No Status: Acute Assessment and plan: Has been stable we will continue to follow he did have bleeding after his renal mass. He is back on Coumadin (6) Weakness Current Visit: Yes Status: Acute Assessment and plan: He is deconditioned and weak he is here for PT OT and RT.. He will be made for rehabilitation today. 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 He is back on Coumadin here for rehab (9) DVT prophylaxis Current Visit: Yes Status: Acute Assessment and plan: He is on Lovenox subcutaneous. Until his INR is therapeutic - Subjective Interval history: He is feeling better today he is still tired he is still weak. But he does feel little bit more energetic. appetite is better.He denies any pain. no more diarrhea. He denies nausea vomiting abdominal pain. He denies dysuria incontinence or frequency. He denies chest pain palpitations. He denies being dizzy - Constitutional Vitals: Temp Pulse Resp BP Pulse Ox 97.6 F 94 16 131/74 94 04/13/18 08:13 04/13/18 08:13 04/13/18 08:13 04/13/18 08:13 04/13/18 08:13 General appearance: Present: cooperative, A&O X 3, no acute distress, answers questions appropriately - Head Head exam: Present: atraumatic, normocephalic - Neck Neck exam general surgery: Present: trachea midline. Absent: tenderness - Respiratory Respiratory exam: Present: CTAB - Cardiovascular Cardiovascular exam: Present: irregular rhythm. Absent: systolic murmur - GI/Abdominal GI/Abdominal exam: Present: normal bowel sounds, soft, no peritoneal signs. Absent: guarding, tenderness - Extremities Exam Extremities exam: Present: warm. Absent: mottling, pedal edema - Neurological Exam Neurological exam: Present: strengths equal and symetr throughout (4/5 right upper and lower), facial droop - Skin Skin exam: Present: dry, warm. Absent: rash Internal Medicine: Result - Labs CBC & Chem 7: 04/13/18 04:52 04/13/18 04:52 Labs: Short CBC 04/13/18 Range/Units 04:52 Hgb 9.7 L (12.9-16.9) g/dL BMP 04/13/18 04:52 Creatinine 1.35 H - ABG Interpretation ABG results: PT/INR, D-dimer PT 14.0 Seconds (9.4-12.1) H 04/13/18 04:52 - VTE Reasons for not Prescribing Prophylaxis: Medical contraindication Consult Discharge Plan - Plan Referrals: Roxana Mathew, DAMPER FITTER [Primary Care Provider] -
[2018-04-13 16:27] VITALS: BP 137/83
[2018-04-13] MEDS: *HR* Warfarin 5 MG TABLET PO SCH ×2 (17:38)
--- NOTE | 2018-04-15 18:26 | Discharge Summary ---
- NOTES TO OUTPATIENT PROVIDER Notes to Outpatient Provider: Patient is being transferred from an acute bed to rehabilitation bed Date of Encounter: 04/15/18 Time of Encounter: 18:23 - Discharge Diagnosis (1) CHEYANNE (acute kidney injury) Priority: Secondary Status: Acute Comments: Patient was admitted with a creatinine of 3.1. At home he was not eating or drinking well. He is given IV fluids and creatinine then dropped to his baseline. Does have known chronic kidney disease. The recent acute kidney injury was likely from decreased by mouth intake from his CVA. He is not doing much better. He was transferred to a rehabilitation bed. (2) History of CVA (cerebrovascular accident) Priority: Primary Status: Acute Comments: Patient was seen in the emergency room with weakness and inability to walk. He was noted to have a creatinine 3.1 felt that was the reason. However after admission it was obvious he had right hemiplegia from the CVA that was evaluated worked up at [facility]. Since coming home he was unable to walk and his son had to lift him up to getting in and out of a chair etc. It was obvious that he had some decreased facial expression, pronator drift the right upper extremity, mild weakness in the right lower extremity. He was admitted as right hemiplegia from recent CVA from embolic etiology. He did show some improvement and was transferred to rehabilitation bed for ongoing inpatient rehabilitation for his CVA. Please see the rehab noted. (3) Chronic kidney disease, stage III (moderate) Priority: Secondary Status: Chronic (4) Weakness Priority: Secondary Status: Acute Comments: History weakness in the ER and not contributed to his right hip lesion. See the note above. (5) Atrial fibrillation Priority: Secondary Status: Chronic Comments: Patient has history of chronic atrial fibrillation. He was percent Coumadin. It was discontinued because of gross hematuria and anemia that apparently required a blood transfusion. Unfortunately, he also afterwards sustained a CVA. After discussing risks and benefits Coumadin was restarted. Qualifiers: Atrial fibrillation type: chronic Qualified Code(s): I48.2 - Chronic atrial fibrillation (6) Renal mass, right Priority: Secondary Status: Chronic Comments: Recurrence of a renal mass and likely renal cell carcinoma. He had spoken to Dr. Brian about this and they were doing expectant management. He now has hematuria again and we will see if her knowledge he has anything they can offer so we could be on his Coumadin again to help avoid another CVA. (7) DVT prophylaxis Priority: Secondary Status: Acute Hospital course: Mr. Issa is a 78 year old male admitted with elevated creatinine 3.1 and weakness. Was found to have right hemiplegia from his CVA. Please note above. - Time Spent with Patient Total time spent providing and/or coordinating discharge services: - Discharge Medications Home Medications: Metoprolol [Lopressor] 100 mg PO BID 09/13/15 [History] Cilostazol [Pletal] 100 mg PO BID 04/03/18 [History] Ferrous Sulfate [Iron] 325 mg PO TID 04/03/18 [History] Losartan Potassium [Cozaar] 100 mg PO DAILY 04/03/18 [History] Tamsulosin [Flomax] 0.4 mg PO DAILY 04/03/18 [History] Aspirin [Ecotrin] 1 tab PO DAILY 04/06/18 [History] Atorvastatin [Lipitor] 40 mg PO HS 04/06/18 [History] Diltiazem HCl [Diltiazem 24Hr Cd] 360 mg PO DAILY 04/10/18 [History] Allergies/Adverse Reactions: 3 Allergy/AdvReac Type Severity Reaction Status Date / Time No Known Allergies Allergy Verified 04/06/18 11:38 Date of admission: 04/10/18 19:38 Primary care physician: Roxana Mathew CNP Consults: 04/11/18 08:06 Consult to Icu Rn [CONS] Routine Reason for SW Consult: please eval for Rehab admission when eligible Discharging clinician: Daysi Solis Anticipated date of discharge: 04/13/18 - Constitutional Vitals: Temp Pulse Resp BP Pulse Ox 97.6 F 86 16 137/83 94 04/13/18 16:23 04/13/18 16:23 04/13/18 16:23 04/13/18 16:23 04/13/18 16:45 General appearance: Present: cooperative, A&O X 3, no acute distress, answers questions appropriately Exam: On day of discharge examination was done by Dr. Berry. He was transferred to a swing bed later that day. I have done the discharge summary afterward. - Patient Status Disposition: Transfer Hospital Swing Bed Condition: Fair - Discharge Instructions Follow Up With: Mathew,Roxana L, PARKING ENFORCER [Primary Care Provider] - - VTE Reasons for not Prescribing Prophylaxis: Medical contraindication
== END 2018-04-13 18:42 | disposition other institution (70) | DRG 683 ==
LOC: INPGRE 13:00 → EMEROOGRE 13:00 → INPGRE 15:53
PROVIDERS: ADMIT Family Medicine; ATTEND Family Medicine

== ENCOUNTER 2018-04-13 18:35 | Inpatient (IN) ==
[2018-04-13] MEDS ORDERED: Naloxone 0.4 MG/ML INJ IVP PRN (20:13)
[2018-04-13] MEDS: Metoprolol 100 MG TABLET PO SCH (21:49)
[2018-04-14 03:02] LABS: Bilirubin,Urine Negative (Negative); Blood,Urine Large (Negative); Clarity,Urine Slightly Cloudy (Clear); Color,Urine Red (Yellow); Glucose,Urine (UA) 100 mg/dL (Normal); Ketones,Urine Negative (Negative); Leukocyte Esterase,Urine Negative (Negative); Nitrite,Urine Negative (Negative); Protein,Urine >=300 mg/dL (Neg-Trace); Specific Gravity,Urine 1.025 (1.010-1.025); Urobilinogen,Urine Normal (Normal)
[2018-04-14 03:05] LABS: RBC,Urine 50-100 per hpf (0-3)
[2018-04-14 03:06] LABS: Amorphous Sediment,Urine Few (Few)
[2018-04-14 05:57] LABS: Basophils % 0.5 %; Eosinophils # 0.2 K/mcL (0.0-0.6); Eosinophils % 3.7 %; Hemoglobin 10.1 g/dL (12.9-16.9); Immature Granulocytes % 0.5 % (0-4); Lymphocytes # 1.1 K/mcL (0.6-4.6); Lymphocytes % 19.2 %; Mean Corpuscular HGB Conc 32.6 g/dL (31.6-35.5); Mean Corpuscular Hemoglobin 28.2 pg (28.0-33.3); Mean Corpuscular Volume 86.6 fL (83.0-100.0); Mean Platelet Volume 9.8 fL (9.4-12.4); Monocytes # 0.4 K/mcL (0.0-1.3); Monocytes % 6.9 %; Neutrophils # 3.8 K/mcL (1.6-8.9); Platelet Count 220 K/mcL (140-400); Red Blood Count 3.58 M/mcL (4.19-5.50); Red Cell Distribution Width 16.7 % (11.5-14.5); Segmented Neutrophils % 69.2 %
[2018-04-14 05:58] LABS: INR 1.9; Prothrombin Time 21.3 Seconds (9.4-12.1)
[2018-04-14 05:59] LABS: Activated Partial Thrombo Time 38.2 Seconds (26.0-36.0)
[2018-04-14 06:11] LABS: Calcium 8.9 mg/dL (8.6-10.3)
[2018-04-14] MEDS: *HR* Enoxaparin 40 MG/0.4 ML SYRINGE SQ SCH (06:20)
--- NOTE | 2018-04-14 07:10 | Internal Med Progress Note ---
Date of Encounter: 04/14/18 Time of Encounter: 07:05 - Assessment and plan (1) History of CVA (cerebrovascular accident) Current Visit: Yes Status: Acute Assessment and plan: History of CVA and right hemiplegia improving. He is now in a full Rehab Bed and will be starting the advanced therapies today. (2) Atrial fibrillation Current Visit: Yes Status: Chronic Assessment and plan: Chronic atrial fibrillation which is rate controlled. He was previously on Coumadin and then had hematuria. 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 The Coumadin was discontinued. He still had some intermittent hematuria. And then he developed his left hemispheric CVA with mild right sided weakness. We restarted his Coumadin last week and pro time is up to 1.9. However, he had hematuria last night and so Dr. Berry held his Coumadin. I will ask Dr. Duron his delivery table operator and [facility] to weigh in on options in plan at this time. I do not know whether he is eligible for a Watchman procedure or not ? Does he need cystoscopy? Continue with Coumadin and see how bad the bleeding gets? Qualifiers: Atrial fibrillation type: chronic Qualified Code(s): I48.2 - Chronic atrial fibrillation (3) Gross hematuria Current Visit: Yes Status: Acute Assessment and plan: See the note above. (4) Chronic kidney disease, stage III (moderate) Current Visit: Yes Status: Chronic Assessment and plan: His creatinine is down to baseline from 3.1 on admission. He is eating and drinking fairly well at this point. (5) Renal mass, right Current Visit: Yes Status: Chronic (6) Acute blood loss anemia Current Visit: Yes Status: Acute (7) DVT prophylaxis Current Visit: Yes Status: Acute - Subjective Interval history: Patient feels that he is getting stronger and feeling better. He seems to be more animated and talkative today than last week. He will be starting full rehabilitation today. He developed hematuria last night. He had some post void residual of 270 and 300. His urine flow is good. He had a few clots. He told me that even being off the Coumadin he had intermittent hematuria prior to his CVA. He has known recurrence of a renal mass presumed renal cell carcinoma and has seen [facility] and for now it was decided no intervention except he was taken off Coumadin. Unfortunately, he had a CVA when off the Coumadin. He denies any abdominal pain. Denies any chest pain or palpitations. Denies any bowel problems. He feels like he is getting stronger. Nurses report he is more independent in getting up and down now. - Constitutional Vitals: Temp Pulse Resp BP Pulse Ox 97.4 F L 104 17 138/65 95 04/14/18 04:52 04/14/18 04:52 04/14/18 04:52 04/14/18 04:52 04/14/18 04:52 General appearance: Present: A&O X 3, no acute distress, answers questions appropriately - Respiratory Respiratory exam: Present: CTAB - Cardiovascular Cardiovascular exam: Present: irregular rhythm, +S1, +S2 - GI/Abdominal Additional comments: Patient is very obese. No obvious liver or spleen enlargement. No guarding or rebound or rigidity. - Extremities Exam Extremities exam: Absent: calf tenderness, pedal edema - Neurological Exam Additional comments: His speech and affect is more fluid and spontaneous today compared to last week. I did not do a full neurological examination today. He did need assistance in sitting up in bed. Internal Medicine: Result - Labs CBC & Chem 7: 04/14/18 05:10 04/14/18 05:10 Labs: Short CBC 04/14/18 Range/Units 05:10 WBC 5.5 (4.3-11.1) K/mcL Hgb 10.1 L (12.9-16.9) g/dL Hct 31.0 L (37.5-50.1) % Plt Count 220 (140-400) K/mcL Neutrophils # 3.8 (1.6-8.9) K/mcL BMP 04/14/18 05:10 Sodium 138 Potassium 4.0 Chloride 107 Carbon Dioxide 25 BUN 13 Creatinine 1.40 H Glucose 101 Calcium 8.9 Urine 04/14/18 Range/Units 02:30 Urine Color Red A (Yellow) Urine Clarity Slightly Cloudy A (Clear) Urine pH 7.0 (5.0-8.0) pH Units Ur Specific Bath 1.025 (1.010-1.025) Urine Protein >=300 H (Neg-Trace) mg/dL Urine Glucose (UA) 100 H (Normal) mg/dL His hemoglobin is 10.1 this morning. This is about at his baseline since admission. His creatinine is back to his baseline and down from 3.1 on admission. His urine shows red blood cells, no white blood cells. - ABG Interpretation ABG results: PT/INR, D-dimer PT 21.3 Seconds (9.4-12.1) H D 04/14/18 05:10 Consult Discharge Plan - Plan Referrals: Roxana Mathew, MAGDALENO [Primary Care Provider] -
[2018-04-14] MEDS: Aspirin Enteric Coated 325 MG Tablet PO SCH ×2 (08:51→11:05)
[2018-04-14] MEDS: Diltiazem CD (24hr) 180 MG CAPSULE PO SCH (08:51)
[2018-04-14] MEDS: Metoprolol 100 MG TABLET PO SCH ×2 (08:51→22:03)
[2018-04-14] MEDS ORDERED: *HR* Warfarin 5 MG TABLET PO SCH (18:00)
[2018-04-15] MEDS: *HR* Enoxaparin 40 MG/0.4 ML SYRINGE SQ SCH (05:32)
[2018-04-15 06:15] LABS: INR 2.6; Prothrombin Time 29.2 Seconds (9.4-12.1)
[2018-04-15] MEDS: Diltiazem CD (24hr) 180 MG CAPSULE PO SCH (08:11)
[2018-04-15] MEDS: Metoprolol 100 MG TABLET PO SCH ×2 (08:11→20:20)
[2018-04-15] MEDS: Aspirin Enteric Coated 325 MG Tablet PO SCH (08:11)
--- NOTE | 2018-04-15 17:59 | Internal Med Progress Note ---
Date of Encounter: 04/15/18 Time of Encounter: 17:54 - Assessment and plan (1) History of CVA (cerebrovascular accident) Current Visit: Yes Status: Acute Assessment and plan: Continues with therapies and showing improvement. He also seems more spontaneous in his speech. Tentative discharge date is Saturday. (2) Atrial fibrillation Current Visit: Yes Status: Chronic Assessment and plan: Continues with atrial fibrillation, controlled rate. No angina or congestive heart failure. Qualifiers: Atrial fibrillation type: chronic Qualified Code(s): I48.2 - Chronic atrial fibrillation (3) Gross hematuria Current Visit: Yes Status: Acute Assessment and plan: Continue gross hematuria. INR still elevated, now at 2.6. No difficulties with urination though. Appointment with his urologist Dr. Brian arranged in [place]. (4) Chronic kidney disease, stage III (moderate) Current Visit: Yes Status: Chronic Assessment and plan: His creatinine has bumped up a bit to 1.8 today. I did encourage him to be taking in more liquids. (5) Renal mass, right Current Visit: Yes Status: Chronic Assessment and plan: Has follow-up with Dr. Brian his urologist scheduled (6) Acute blood loss anemia Current Visit: Yes Status: Acute (7) DVT prophylaxis Current Visit: Yes Status: Acute - Subjective Interval history: Patient states that he is feeling fairly good. He denies any chest pain, palpitation, GI or symptoms other than continued blood in his urine. No dysuria or difficulties with urination. He feels that he is getting stronger. He thinks his strength is about equal on upper and lower extremities. He is advancing with his therapies nicely. Nurse reports that it is just standby when he walks with his walker down the hallway. - Constitutional Vitals: Temp Pulse Resp BP Pulse Ox 97.7 F 69 21 136/68 95 04/15/18 08:30 04/15/18 08:30 04/15/18 08:30 04/15/18 08:30 04/15/18 08:30 General appearance: Present: A&O X 3, no acute distress, answers questions appropriately - Respiratory Respiratory exam: Present: CTAB - Cardiovascular Cardiovascular exam: Present: irregular rhythm, +S1, +S2 - GI/Abdominal Additional comments: Very obese but no liver or spleen enlargement no pulsatile masses. No tenderness. - Extremities Exam Extremities exam: Absent: calf tenderness, pedal edema, tenderness - Neurological Exam Additional comments: He seems to have equal strength in hands grasp. No pronator drift seen today. Lower extremities appear to be equal strength. I did not get him out of bed to ambulate. Internal Medicine: Result - Labs CBC & Chem 7: 04/15/18 05:20 04/15/18 05:20 Labs: Short CBC 04/15/18 Range/Units 05:20 Hgb 10.0 L (12.9-16.9) g/dL BMP 04/15/18 05:20 Creatinine 1.85 H Hemoglobin is stable. Creatinine bumped to 1.8 - ABG Interpretation ABG results: PT/INR, D-dimer PT 29.2 Seconds (9.4-12.1) H 04/15/18 05:20 Consult Discharge Plan - Plan Referrals: Roxana Mathew, SOLAR TECHNICIAN [Primary Care Provider] -
[2018-04-16] MEDS: *HR* Enoxaparin 40 MG/0.4 ML SYRINGE SQ SCH (05:57)
[2018-04-16 06:10] LABS: INR 2.2; Prothrombin Time 24.4 Seconds (9.4-12.1)
[2018-04-16] MEDS: Diltiazem CD (24hr) 180 MG CAPSULE PO SCH (08:49)
[2018-04-16] MEDS: Metoprolol 100 MG TABLET PO SCH ×2 (08:49→21:27)
[2018-04-16] MEDS: Aspirin Enteric Coated 325 MG Tablet PO SCH (08:49)
--- NOTE | 2018-04-16 08:55 | Internal Med Progress Note ---
Date of Encounter: 04/16/18 Time of Encounter: 08:50 - Assessment and plan (1) History of CVA (cerebrovascular accident) Current Visit: Yes Status: Acute Assessment and plan: CVA with right hemiplegia improving. Continue with therapies. Plan for discharge is Saturday. Still considering anticoagulation or not. I will speak with Dr. Duron today. (2) Atrial fibrillation Current Visit: Yes Status: Chronic Assessment and plan: Rate controlled atrial fibrillation. I will speak with Dr. Duron today regarding recommendation for anticoagulation versus watchman procedure or other. Qualifiers: Atrial fibrillation type: chronic Qualified Code(s): I48.2 - Chronic atrial fibrillation (3) Gross hematuria Current Visit: Yes Status: Acute Assessment and plan: Gross hematuria is improving. (4) Chronic kidney disease, stage III (moderate) Current Visit: Yes Status: Chronic Assessment and plan: About at baseline. Creatinine leveled off after increasing slightly (5) Renal mass, right Current Visit: Yes Status: Chronic Assessment and plan: Has follow-up planned with urology (6) Acute blood loss anemia Current Visit: Yes Status: Acute Assessment and plan: Hemoglobin relatively stable. Certainly no significant brisk drop. (7) DVT prophylaxis Current Visit: Yes Status: Acute Assessment and plan: Still using Lovenox for DVT prophylaxis. - Subjective Interval history: Patient states that he is doing well. He denies a cardiac respiratory symptoms. He feels he is advancing well with his therapies and looking forward to going home soon. He has a few stairs to get into the home and will be practicing steps today. He noticed slight amount of blood in his urine this morning. No troubles with urination, clots etc. Bowels have been moving appropriately well without melena or hematochezia. The diarrhea is resolved - Constitutional Vitals: Temp Pulse Resp BP Pulse Ox 97.3 F L 82 17 133/67 93 04/16/18 07:51 04/15/18 20:19 04/15/18 18:53 04/16/18 07:51 04/16/18 01:34 General appearance: Present: A&O X 3, no acute distress, answers questions appropriately - Respiratory Respiratory exam: Present: CTAB - Cardiovascular Cardiovascular exam: Present: irregular rhythm (Rate controlled), +S1, +S2, systolic murmur (1/6 systolic murmur) - Extremities Exam Extremities exam: Absent: calf tenderness, pedal edema, tenderness - Neurological Exam Neurological exam: Present: alert, CN II-XII intact, oriented X3 Additional comments: He seems a lot more alert, talkative and social compared to admission. He has mild weakness in raising arms over his head on the right side. 4 out of 5 strength and wobbling in extension at the knee. Quads about 4 out of 5. Internal Medicine: Result - Labs CBC & Chem 7: 04/16/18 05:50 04/16/18 05:50 Labs: Short CBC 04/16/18 Range/Units 05:50 Hgb 9.6 L (12.9-16.9) g/dL BMP 04/16/18 05:50 Creatinine 1.84 H Hemoglobin slightly lower than yesterday. Creatinine leveled off at 1.8. - ABG Interpretation ABG results: PT/INR, D-dimer PT 24.4 Seconds (9.4-12.1) H 04/16/18 05:50 Consult Discharge Plan - Plan Referrals: Roxana Mathew, STUDENT DEAN [Primary Care Provider] -
[2018-04-17] MEDS: *HR* Enoxaparin 40 MG/0.4 ML SYRINGE SQ SCH (05:26)
[2018-04-17 05:45] LABS: INR 1.9; Prothrombin Time 21.4 Seconds (9.4-12.1)
[2018-04-17] MEDS: Metoprolol 100 MG TABLET PO SCH ×2 (08:23→22:11)
[2018-04-17] MEDS: Diltiazem CD (24hr) 180 MG CAPSULE PO SCH (08:23)
[2018-04-17] MEDS: Aspirin Enteric Coated 325 MG Tablet PO SCH (08:24)
--- NOTE | 2018-04-17 11:40 | Internal Med Progress Note ---
Date of Encounter: 04/17/18 Time of Encounter: 11:38 - Assessment and plan (1) History of CVA (cerebrovascular accident) Current Visit: Yes Status: Acute Assessment and plan: He is advancing with his therapies. Plan for discharge tomorrow. (2) Atrial fibrillation Current Visit: Yes Status: Chronic Assessment and plan: I spoke with patient and son regarding Watchman procedure so we can avoid long- term anticoagulation. We will plan that consultation at discharge Qualifiers: Atrial fibrillation type: chronic Qualified Code(s): I48.2 - Chronic atrial fibrillation (3) Gross hematuria Current Visit: Yes Status: Acute (4) Chronic kidney disease, stage III (moderate) Current Visit: Yes Status: Chronic Assessment and plan: Renal function is back to baseline. (5) Renal mass, right Current Visit: Yes Status: Chronic Assessment and plan: Follow-up with Dr. Brian arranged (6) Acute blood loss anemia Current Visit: Yes Status: Acute Assessment and plan: Hemoglobin is now stable. (7) DVT prophylaxis Current Visit: Yes Status: Acute - Subjective Interval history: I saw the patient in the therapy room today. He is advancing nicely. He had no complaints of cardiovascular or weakness symptoms. I spoke with his son today regarding the watchman procedure, risks of anticoagulation, the hematuria etc. I told him I could arrange for outpatient consultation in [place] with Dr. Freedman as recommended by Dr. Duron his hospital librarian. - Constitutional Vitals: Temp Pulse Resp BP Pulse Ox 97.6 F 96 16 135/82 95 04/17/18 07:24 04/17/18 07:24 04/17/18 07:24 04/17/18 07:24 04/17/18 09:21 General appearance: Present: A&O X 3, no acute distress, answers questions appropriately Exam: I saw patient in the therapy room. I did not do a more formal exam than that. Internal Medicine: Result - Labs CBC & Chem 7: 04/17/18 05:15 04/17/18 05:15 Labs: Short CBC 04/17/18 Range/Units 05:15 Hgb 9.6 L (12.9-16.9) g/dL BMP 04/17/18 05:15 Creatinine 1.87 H Laboratory has been reviewed. Stable. - ABG Interpretation ABG results: PT/INR, D-dimer PT 21.4 Seconds (9.4-12.1) H 04/17/18 05:15 Consult Discharge Plan - Plan Referrals: Roxana Mathew, WIRELESS TECHNICIAN [Primary Care Provider] -
--- NOTE | 2018-04-17 22:51 | Discharge Summary ---
- NOTES TO OUTPATIENT PROVIDER Notes to Outpatient Provider: #1. Patient wants to see Dr. Duron again regarding Watchman procedure before going to [place] to see Dr. Freedman. #2. Patient has appointment to see his urologist Dr. 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 He was seen acutely at [facility] and was discharged 2 days later. They felt that this was a TIA and had resolution. It was noted that he was off his anticoagulation of Coumadin due to hematuria and presumed recurrence of renal cell carcinoma. [facility] recommended that he be back on full anticoagulation because of atrial fibrillation and subsequent CVA. When he came to our ER he was not able to walk and was found to have right hemiplegia residual from the CVA.. He was in an acute bed because of the symptoms as well as acute kidney injury with creatinine 3.1 because of poor by mouth intake. He improved over the subsequent few days. He was transferred from acute bed to Rehabilitation bed and finished therapies to the point where it is safe to send him home. He is ambulating with a walker. He still is atrial fibrillation and at risk for recurrence of CVA. However, he does continue to have hematuria. I have spoken him about Watchman procedure at [facility]. I have given him printed information about. He wants to talk to Dr. Duron again prior to committing to seeing Dr. Freedman at [facility]. He was discharged much improved and stable condition and his son lives nearby. Follow-up in the office as been arranged. He will also have outpatient physical therapy. (2) Atrial fibrillation Priority: Secondary Status: Chronic Comments: Long-standing atrial fibrillation. He was on Coumadin previously. That was stopped because of hematuria. Then he had a CVA with right hemiplegia. He is rate control with atrial fibrillation. Recommendation regarding Watchman procedure by Dr. Freedman at [facility] has been recommended by Dr. Duron. The patient atrial fibrillation is rate controlled in no angina or CHF. I recommended that he see Dr. Freedman at [facility] to discuss that procedure, but he wants to talk to Dr. Duron again prior to going to [facility]. He was sent home on aspirin 325 mg Qualifiers: Atrial fibrillation type: chronic Qualified Code(s): I48.2 - Chronic atrial fibrillation (3) Gross hematuria Priority: Secondary Status: Acute Comments: Continued gross hematuria from his presumed recurrence of renal cell carcinoma. We will have him see his urologist Dr. Brian again. I do not know if there is something that he can do as an intervention to remedy this situation. If it is all coming from a neoplastic lesion options may be limited. His Coumadin was discontinued when his hematuria returned. (4) Chronic kidney disease, stage III (moderate) Priority: Secondary Status: Chronic Comments: Chronic kidney disease, had acute kidney injury which was prerenal on admission because of poor by mouth intake. His creatinine was 3.1 as now back to baseline of 1.5-1.7 range. His by mouth intake is appropriate (5) Renal mass, right Priority: Secondary Status: Chronic Comments: He will follow up with Dr. Brian. (6) Acute blood loss anemia Priority: Secondary Status: Acute (7) DVT prophylaxis Priority: Secondary Status: Acute Hospital course: Mr. Issa is a 78 year old male admitted to our facility into an acute bed with a history of weakness in lower extremities and previous TIA. Actually he had had a CVA with right hemiplegia and acute kidney injury. That was improved. Please see the discharge note. He was then transferred to Rehabilitation bed and underwent therapies. See the diagnoses above. Discharge discussed with: patient - Time Spent with Patient Total time spent providing and/or coordinating discharge services: - Discharge Medications Home Medications: Metoprolol [Lopressor] 100 mg PO BID 09/13/15 [History] Cilostazol [Pletal] 100 mg PO BID 04/03/18 [History] Ferrous Sulfate [Iron] 325 mg PO TID 04/03/18 [History] Losartan Potassium [Cozaar] 100 mg PO DAILY 04/03/18 [History] Tamsulosin [Flomax] 0.4 mg PO DAILY 04/03/18 [History] Aspirin [Ecotrin] 1 tab PO DAILY 04/06/18 [History] Atorvastatin [Lipitor] 40 mg PO HS 04/06/18 [History] Diltiazem HCl [Diltiazem 24Hr Cd] 360 mg PO DAILY 04/10/18 [History] Allergies/Adverse Reactions: 3 Allergy/AdvReac Type Severity Reaction Status Date / Time No Known Allergies Allergy Verified 04/06/18 11:38 Date of admission: 04/13/18 18:47 Primary care physician: Roxana Mathew CNP Consults: 04/13/18 19:34 Consult to Occupational Therapy [CONS] Routine Comment: Evaluate, develop and implement POC Reason for Consult: OT assessment Does patient have active BEDREST order?: No Is patient medically & hemodynamically stable?: Yes Consult to Physical Therapy [CONS] Routine Comment: Evaluate, develop and implement POC Reason for Consult: PT plan Does patient have active BEDREST order?: No Is patient medically & hemodynamically stable?: Yes Consult to Recreational Therapy [CONS] Routine Comment: Evaluate, develop and implement POC Consult to [place] [CONS] Routine Reason for SW Consult: discharge planning 04/14/18 08:00 Consult to Cardiology [CONS] Routine Comment: Consulting Provider: [facility] [place] Reason for Consult: History of atrial fibrillation, hematuria with Coumadin. History of recent CVA. Call Completed: No Consult to Urology [CONS] Routine Consulting Provider: [facility] [place] Reason for Consult: Recurrence of hematuria, renal mass. Question regarding Coumadin use due to CVA Call Completed: No Discharging clinician: Peter Biggs Anticipated date of discharge: 04/18/18 - Constitutional Vitals: Temp Pulse Resp BP Pulse Ox 97.5 F L 71 18 112/53 94 04/17/18 19:11 04/17/18 22:10 04/17/18 19:11 04/17/18 19:11 04/17/18 22:18 General appearance: Present: A&O X 3, no acute distress, answers questions appropriately - Respiratory Respiratory exam: Present: decreased breath sounds, CTAB - Cardiovascular Cardiovascular exam: Present: irregular rhythm, +S1, +S2 - Extremities Exam Extremities exam: Present: mottling. Absent: calf tenderness, pedal edema, tenderness - Neurological Exam Neurological exam: Present: CN II-XII intact Additional comments: I did not evaluate his gait currently. - Patient Status Disposition: Home, Self-Care Condition: Good Functional capacity at discharge: uses cane/walker - Discharge Instructions Follow Up With: Norberto Duron MD [Partnered Physician] - Peter Biggs MD [Partnered Physician] - 04/23/18 1:30 pm Cecilio Brian MD [Partnered Physician] - 05/05/18 2:45 pm Additional Instructions: Follow-up appointments: If there is not an appointment listed below, please call your physician and schedule a follow-up appointment. If you have congestive heart failure and your symptoms return, make an appointment with your physician. Medication List: Carry an up to date list of medications you are taking at all time. We have given you an updated medication list including any new medications that you have been prescribed. Please provide that list to your primary provider Symptoms: If your condition changes or you experience any of the following symptoms, notify your physician immediately: Unusual or worsening pain, fever, persistent nausea and vomiting, bleeding, increase in swelling (especially in your legs), sudden weight gain, extreme dizziness, chest pain, increased drainage or redness from a wound or incision. Go to the emergency department if you experience a problem with breathing. Weights: If you have a history of swelling or shortness of breath, weigh yourself daily and notify your physician if you have a weight gain of two or more pounds in one day or 5 or more pounds in a week. If you experience any of the warning signs for stroke: Sudden numbness or weakness of the face, arm or leg; especially on one side of the body, sudden confusion, trouble speaking or understanding, sudden trouble seeing in one or both eyes, sudden trouble walking, dizziness, loss of balance or coordination, sudden sever headache with no cause; Call 911 or go to the emergency room. Stroke is a medical emergency. Some risk factors for stroke: Age, cigarette smoking, diabetes, excessive alcohol consumption, family history , high blood pressure, overweight, physical inactivity, prior stroke, heart attack, diagnosis of carotid artery stenosis or other artery disease. If you smoke, STOP: Smoking or tobacco use significantly increases your risk of heart and lung disease. Your chance of disease greatly increases if you continue to smoke. For more information, call the [place] tobacco quit line for smoking cessation - QUIT-NOW ( ) - Diet and Activity Activity: ambulate only with your walker, as per physical therapy Diet: low salt diet
[2018-04-18 05:31] LABS: INR 1.7
[2018-04-18] MEDS: *HR* Enoxaparin 40 MG/0.4 ML SYRINGE SQ SCH (06:18)
[2018-04-18 07:47] VITALS: BP 123/78
[2018-04-18] MEDS: Diltiazem CD (24hr) 180 MG CAPSULE PO SCH (08:12)
[2018-04-18] MEDS: Metoprolol 100 MG TABLET PO SCH (08:13)
[2018-04-18] MEDS: Aspirin Enteric Coated 325 MG Tablet PO SCH (08:13)
== END 2018-04-18 12:00 | disposition home or self-care (01) | DRG 57 ==
LOC: INPGRE 18:47
PROVIDERS: ADMIT Family Medicine; ATTEND Family Medicine

== ENCOUNTER 2019-08-08 13:45 | Inpatient (IN) ==
[2019-08-09] MEDS: Metoprolol XL (24 HR) Succ 50 MG TAB.ER.24H PO SCH (20:25)
[2019-08-09] MEDS: Acetaminophen 325 MG TABLET PO PRN (20:26)
[2019-08-10 05:49] LABS: Basophils % 0.5 %; Eosinophils # 0.4 K/mcL (0.0-0.6); Eosinophils % 6.3 %; Hematocrit 29.9 % (37.5-50.1); Hemoglobin 9.8 g/dL (12.9-16.9); Immature Granulocytes % 0.9 % (0-4); Lymphocytes # 1.1 K/mcL (0.6-4.6); Lymphocytes % 17.8 %; Mean Corpuscular HGB Conc 32.8 g/dL (31.6-35.5); Mean Corpuscular Hemoglobin 30.4 pg (28.0-33.3); Mean Corpuscular Volume 92.9 fL (83.0-100.0); Monocytes # 0.4 K/mcL (0.0-1.3); Monocytes % 6.2 %; Neutrophils # 4.3 K/mcL (1.6-8.9); Platelet Count 315 K/mcL (140-400); Red Blood Count 3.22 M/mcL (4.19-5.50); Red Cell Distribution Width 14.5 % (11.5-14.5); Segmented Neutrophils % 68.3 %; White Blood Count 6.3 K/mcL (4.3-11.1)
[2019-08-10 05:53] LABS: Prothrombin Time 34.1 Seconds (9.4-12.1)
[2019-08-10 06:04] LABS: Calcium 8.6 mg/dL (8.6-10.3)
[2019-08-10] MEDS ORDERED: *HR* Digoxin 0.125 MG TABLET PO SCH (09:00)
[2019-08-10] MEDS: Multivit/Ca/Min/Fe/FA 1 TAB TABLET PO SCH (09:16)
[2019-08-10] MEDS: Metoprolol XL (24 HR) Succ 50 MG TAB.ER.24H PO SCH ×2 (09:16→20:20)
[2019-08-10] MEDS: Aspirin Enteric Coated 81 MG Tablet PO SCH (09:16)
[2019-08-10] MEDS: Famotidine 20 MG TABLET PO SCH (09:16)
[2019-08-10] MEDS: *HR* Warfarin 2 MG TABLET PO SCH (17:09)
[2019-08-10] MEDS: Acetaminophen 325 MG TABLET PO PRN (20:21)
[2019-08-11 06:11] LABS: INR 2.6; Prothrombin Time 30.1 Seconds (9.4-12.1)
[2019-08-11] MEDS: Famotidine 20 MG TABLET PO SCH (08:16)
[2019-08-11] MEDS: Aspirin Enteric Coated 81 MG Tablet PO SCH (08:16)
[2019-08-11] MEDS: Metoprolol XL (24 HR) Succ 50 MG TAB.ER.24H PO SCH ×2 (08:16→20:19)
[2019-08-11] MEDS: Multivit/Ca/Min/Fe/FA 1 TAB TABLET PO SCH (08:16)
[2019-08-11] MEDS: Acetaminophen 325 MG TABLET PO PRN ×2 (08:16→18:00)
[2019-08-11] MEDS: *HR* Digoxin 0.125 MG TABLET PO SCH (08:17)
[2019-08-11] MEDS: *HR* Warfarin 2 MG TABLET PO SCH (18:00)
[2019-08-12 07:38] LABS: INR 2.4; Prothrombin Time 27.6 Seconds (9.4-12.1)
[2019-08-12] MEDS: Metoprolol XL (24 HR) Succ 50 MG TAB.ER.24H PO SCH ×2 (08:38→21:05)
[2019-08-12] MEDS: *HR* Digoxin 0.125 MG TABLET PO SCH (08:39)
[2019-08-12] MEDS: Multivit/Ca/Min/Fe/FA 1 TAB TABLET PO SCH (08:39)
[2019-08-12] MEDS: Famotidine 20 MG TABLET PO SCH (08:39)
[2019-08-12] MEDS: Aspirin Enteric Coated 81 MG Tablet PO SCH (08:39)
[2019-08-12] MEDS: Acetaminophen 325 MG TABLET PO PRN (10:54)
[2019-08-12] MEDS: *HR* Warfarin 2 MG TABLET PO SCH (17:28)
[2019-08-13 07:46] LABS: INR 2.5; Prothrombin Time 28.2 Seconds (9.4-12.1)
[2019-08-13 08:02] LABS: Chol/HDL Ratio 4.1 (0-4.9)
[2019-08-13] MEDS: Aspirin Enteric Coated 81 MG Tablet PO SCH (08:20)
[2019-08-13] MEDS: Famotidine 20 MG TABLET PO SCH (08:20)
[2019-08-13] MEDS: Multivit/Ca/Min/Fe/FA 1 TAB TABLET PO SCH (08:20)
[2019-08-13] MEDS: Metoprolol XL (24 HR) Succ 50 MG TAB.ER.24H PO SCH ×2 (08:20→20:50)
[2019-08-13] MEDS: *HR* Digoxin 0.125 MG TABLET PO SCH (08:20)
[2019-08-13] MEDS: Acetaminophen 325 MG TABLET PO PRN ×2 (11:02→23:43)
[2019-08-13] MEDS ORDERED: *HR* Digoxin 0.125 MG TABLET PO STA (11:18)
[2019-08-13] MEDS: *HR* Warfarin 2 MG TABLET PO SCH (18:18)
[2019-08-14] MEDS ORDERED: *HR* Digoxin 0.25 MG TABLET PO SCH (09:00)
[2019-08-14 09:06] VITALS: BP 136/76
[2019-08-14] MEDS: Famotidine 20 MG TABLET PO SCH (10:22)
[2019-08-14] MEDS: Multivit/Ca/Min/Fe/FA 1 TAB TABLET PO SCH (10:23)
[2019-08-14] MEDS: Aspirin Enteric Coated 81 MG Tablet PO SCH (10:23)
[2019-08-14] MEDS: Metoprolol XL (24 HR) Succ 50 MG TAB.ER.24H PO SCH (10:23)
== END 2019-08-14 10:38 | disposition home or self-care (01) | DRG 945 ==
LOC: INPGRE 08-09 17:29
PROVIDERS: ADMIT Family Medicine; ATTEND Family Medicine